=== PATIENT | female | born 1965 | race Caucasian/White ===

== ENCOUNTER 2018-01-29 13:03 | Emergency (ER) | payer OTHER ==
[~2018-01-29] VITALS: Ht 167.6 cm; Wt 70.3 kg
[~2018-01-29 13:03] MED LIST: AMOX1TAB12 PO; EFFEXOR25 MG; MEDROL4 MG PO; PYRIDIUM100 MG PO; SYNTHROID100 MCG PO; SYNTHROID88 MCG; TENCON TABLET1 TAB PO; ZITHROMAX PO
== END 2018-01-29 14:45 | disposition home or self-care (01) ==
LOC: ER 13:03
DX: S00.83XA Contusion of other part of head, initial encounter (principal); W01.0XXA Fall on same level from slipping, tripping and stumbling without subsequent striking against object, initial encounter; Y93.01 Activity, walking, marching and hiking; Y92.098 Other place in other non-institutional residence as the place of occurrence of the external cause; Y99.8 Other external cause status

== ENCOUNTER → 2018-07-08 | Emergency (ER) | payer OTHER | END | disposition left against medical advice (07) | LOC: ER 14:33 | DX: Z53.20 Procedure and treatment not carried out because of patient's decision for unspecified reasons (principal) ==

== ENCOUNTER 2018-07-23 14:02 | Emergency (ER) | payer OTHER ==
[~2018-07-23] VITALS: Ht 167.6 cm; Wt 68.0 kg
== END 2018-07-23 21:18 | disposition home or self-care (01) ==
LOC: ER 14:02
DX: R07.89 Other chest pain (principal)

== ENCOUNTER 2018-08-29 13:26 | Emergency (ER) | payer OTHER ==
[~2018-08-29] VITALS: Ht 167.6 cm; Wt 68.0 kg
== END 2018-08-29 20:27 | disposition home or self-care (01) ==
LOC: ER 13:26
DX: M54.89 Other dorsalgia (principal); R51 Headache; N39.0 Urinary tract infection, site not specified; S30.0XXA Contusion of lower back and pelvis, initial encounter; S80.12XS Contusion of left lower leg, sequela; S80.11XS Contusion of right lower leg, sequela; S20.212S Contusion of left front wall of thorax, sequela; S20.211S Contusion of right front wall of thorax, sequela; X58.XXXS Exposure to other specified factors, sequela

== ENCOUNTER 2018-12-15 13:45 | Emergency (ER) | payer OTHER ==
[~2018-12-15] VITALS: Ht 167.6 cm; Wt 70.3 kg
[2018-12-15] MEDS ORDERED: SYNTHROID100 MCG PO (14:00)
== END 2018-12-15 17:06 | disposition home or self-care (01) ==
LOC: ER 13:45
DX: R60.0 Localized edema (principal); N39.0 Urinary tract infection, site not specified

== ENCOUNTER 2019-02-28 01:43 | Emergency (ER) | payer OTHER ==
[~2019-02-28] VITALS: Ht 167.6 cm; Wt 68.0 kg
[2019-02-28] MEDS ORDERED: CLONAZEPAM2 M1 (01:53)
== END 2019-02-28 03:29 | disposition home or self-care (01) ==
LOC: ER 01:43
DX: F41.9 Anxiety disorder, unspecified (principal); T45.0X5A Adverse effect of antiallergic and antiemetic drugs, initial encounter

== ENCOUNTER 2019-04-27 14:16 | Emergency (ER) | payer OTHER ==
[~2019-04-27] VITALS: Ht 152.4 cm; Wt 70.3 kg
[~2019-04-27 14:16] MED LIST changes: +CLONAZEPAM2 M1
== END 2019-04-27 16:01 | disposition home or self-care (01) ==
LOC: ER 14:16
DX: S80.01XA Contusion of right knee, initial encounter (principal); W10.8XXA Fall (on) (from) other stairs and steps, initial encounter; Y93.89 Activity, other specified; Y92.89 Other specified places as the place of occurrence of the external cause; Y99.8 Other external cause status

== ENCOUNTER 2021-04-03 11:23 | Outpatient (CLI) | payer OTHER | END 2021-04-03 11:32 | disposition home or self-care (01) | LOC: SONOGRAMA 11:23 | PROVIDERS: ATTEND Internal Medicine Endocrinology, Diabetes & Metabolism | DX: E04.2 Nontoxic multinodular goiter (principal) ==